=== PATIENT | male | born 1995 | race American Indian/Alaskan Native ===

== ENCOUNTER 2016-05-18 21:59 | Emergency (ER) | payer SELFPAY ==
[2016-05-18 23:51] LABS: Basophils % (Auto) 0.5 % (0.0-1.8); Eosinophils % (Auto) 1.7 % (0.0-4.3); Hematocrit 44.3 % (35.5-45.6); Hemoglobin 14.9 gm/dl (11.8-15.2); Mean Corpuscular HGB Conc 34 % (32-34); Mean Corpuscular Hemoglobin 29 pg (28-32); Mean Corpuscular Volume 85 fl (84-94); Platelet Count 175 K/mm3 (140-440); Red Blood Count 5.19 M/mm3 (3.65-5.03); Red Cell Distribution Width 12.8 % (13.2-15.2); White Blood Count 8.8 K/mm3 (4.5-11.0)
[2016-05-19 00:04] LABS: Anion Gap 19 mmol/L; Blood Urea Nitrogen 17 mg/dL (9-20); Carbon Dioxide 24 mmol/L (22-30); Chloride 100.9 mmol/L (98-107); Glucose 69 mg/dL (75-100); Potassium 3.8 mmol/L (3.6-5.0); Sodium 140 mmol/L (137-145)
[2016-05-19] MEDS ORDERED: TORADOL IM ONE (07:20)
--- NOTE | 2016-05-19 07:20 | Emergency Department Report ---
ED General Adult HPI - General Chief complaint: Chest Pain Stated complaint: CHEST PAIN, HEADACHE, PAIN IN LT SIDE Time Seen by Provider: 05/19/16 07:02 Source: patient Mode of arrival: Ambulatory Limitations: No Limitations - History of Present Illness Initial comments: This is a 21-year-old male. He is previously unknown to me. He does not have a primary care doctor. He has no chronic medical conditions. The patient presents with 2 complaints. The patient's first complaint is chest pain. The chest pain is in the left side of the chest. It increases with deep inspiration, and movement of the left upper extremity. The pain does not radiate to the back, arms and neck. There is no vomiting, diaphoresis or shortness of breath. Patient reports that 3-4 days ago, he got back from [facility]. The pain started before he went to [facility]. There is no leg pain. There is no leg swelling. No cocaine use. Patient reports that his mother and father do not have a history of heart disease. The patient's next complaint is headache. The headache is occipital, and right- sided. The headache is not sudden or thunderclap in nature. The headache did not respond maximal intensity within an hour. There is no neck pain or neck stiffness. The patient reports a worse headache 3-4 months ago. -: Gradual Location: head, chest, left, upper extremity Severity scale (0 -10): 0 Quality: aching Consistency: intermittent Improves with: other (as per history of present illness. Patient reports that headache does not have any exacerbating or relieving factors) Worsens with: other (as per history of present illness) Associated Symptoms: chest pain, headaches - Related Data Home Medications Medication Instructions Recorded Confirmed Last Taken No Known Home Medications [No 05/19/16 05/19/16 Unknown Reported Home Medications] Allergies Allergy/AdvReac Type Severity Reaction Status Date / Time No Known Allergies Allergy Unverified 09/16/14 09:21 ED Review of Systems ROS: Stated complaint: CHEST PAIN, HEADACHE, PAIN IN LT SIDE Other details as noted in HPI Constitutional: denies: malaise Eyes: denies: vision change ENT: denies: epistaxis Respiratory: see HPI Cardiovascular: chest pain Gastrointestinal: denies: abdominal pain Genitourinary: as per HPI Musculoskeletal: denies: back pain Skin: denies: lesions Neurological: headache Psychiatric: as per HPI ED Past Medical Hx - Past Medical History Previous Medical History?: No - Surgical History Past Surgical History?: Yes Additional Surgical History: RIGHT EYE SURGERY - Social History Smoking Status: Never Smoker Substance Use Type: Alcohol - Medications Home Medications: Home Medications Medication Instructions Recorded Confirmed Last Taken Type No Known Home Medications [No 05/19/16 05/19/16 Unknown History Reported Home Medications] ED Physical Exam - General Limitations: No Limitations General appearance: alert, in no apparent distress - Head Head exam: Present: atraumatic, normocephalic - Eye Eye exam: Present: normal appearance, PERRL, EOMI, other (visual acuity is intact to finger counting, color perception, rating at a close distance). Absent: nystagmus - ENT ENT exam: Present: normal exam, normal orophraynx, mucous membranes moist, normal external ear exam - Neck Neck exam: Present: normal inspection, full ROM. Absent: tenderness, meningismus - Respiratory Respiratory exam: Present: normal lung sounds bilaterally. Absent: respiratory distress, wheezes, rales, rhonchi, stridor, decreased breath sounds - Cardiovascular Cardiovascular Exam: Present: regular rate, normal rhythm, normal heart sounds. Absent: bradycardia, tachycardia, irregular rhythm, systolic murmur, diastolic murmur, rubs, gallop - GI/Abdominal GI/Abdominal exam: Present: soft, normal bowel sounds. Absent: distended, tenderness, guarding, rebound, rigid, pulsatile mass - Rectal Rectal exam: Present: deferred - Extremities Exam Extremities exam: Present: normal inspection, full ROM, normal capillary refill. Absent: tenderness, pedal edema, joint swelling, calf tenderness - Back Exam Back exam: Present: normal inspection, full ROM. Absent: tenderness, CVA tenderness (R), CVA tenderness (L), muscle spasm, paraspinal tenderness, vertebral tenderness - Neurological Exam Neurological exam: Present: alert, oriented X3, normal gait, other (Extraocular movements intact. Tongue midline. No facial droop. Facial sensation intact to light touch in the V1, V2, V3 distribution bilaterally. 5 and 5 strength in 4 extremities.. Sensation is intact to light touch in 4 extremities.). Absent : motor sensory deficit - Psychiatric Psychiatric exam: Present: normal affect, normal mood - Skin Skin exam: Present: warm, dry, intact, normal color. Absent: rash ED Course Vital Signs 04/07/17 04/08/17 04/08/17 22:25 02:57 05:13 Temperature 98.0 F 97.4 F L 98 F Pulse Rate 82 60 52 L Respiratory 18 18 16 Rate Blood Pressure 127/85 126/80 Blood Pressure 132/77 [Left] O2 Sat by Pulse 99 100 99 Oximetry 05/19/16 07:50 Temperature 98.0 F Pulse Rate 63 Respiratory 16 Rate Blood Pressure Blood Pressure 120/79 [Left] O2 Sat by Pulse 100 Oximetry - Reevaluation(s) Reevaluation #1: 05/19/16 08:07 Differential diagnosis: Migraine headache, tension headache, cluster headache, muscular headache, pneumonia, costochondritis, pleuritis, myocarditis, pulmonary embolus, acute coronary syndrome Assessment and plan: 21-year-old male with 2 complaints. For the patient's chest pain, it has been present for 1-2 weeks. Troponins negative 3. Low risk by ALEXANDER score, low risk by heart score, low risk by well' s criteria, perc negative. Highly doubt thromboembolic disease, but given recent trip to [facility], d- dimer sent to risk stratify the patient, his chest pain is not reproducible. Myocarditis unlikely given lack of negative troponins and lack of tachycardia. X-ray of the chest is negative. EKG not morphologically consistent with STEMI, initial EKG demonstrates possible atrial enlargement, and incomplete right bundle-branch block. This seems to have resolved on repeat EKG. Assuming negative d-dimer or negative pulmonary embolus, patient is suitable to follow up with outpatient cardiology given that symptoms have been present for weeks. He reports no change in exercise tolerance. Patient's headache nonspecific, clinically sounds benign, has a GCS of 15, NIH score of 0, history and physical do not suggest ischemic or hemorrhagic stroke. Patient's pain will be treated symptomatically with ketorolac. Reevaluation #2: 05/19/16 08:24 D-dimer negative. Feels improved. Patient will be discharged. He is instructed to follow up with outpatient cardiology. Return precautions are excessively reviewed. ED Medical Decision Making - Lab Data Result diagrams: 05/18/16 23:27 05/18/16 23:27 Vital Signs 05/18/16 05/19/16 05/19/16 22:25 02:57 05:13 Temperature 98.0 F 97.4 F L 98 F Pulse Rate 82 60 52 L Respiratory 18 18 16 Rate Blood Pressure 127/85 126/80 Blood Pressure 132/77 [Left] O2 Sat by Pulse 99 100 99 Oximetry Lab Results 05/18/16 05/18/16 05/19/16 Range/Units 23:27 23:27 02:00 WBC 8.8 (4.5-11.0) K/mm3 RBC 5.19 H (3.65-5.03) M/mm3 Hgb 14.9 (11.8-15.2) gm/dl Hct 44.3 (35.5-45.6) % MCV 85 (84-94) fl MCH 29 (28-32) pg MCHC 34 (32-34) % RDW 12.8 L (13.2-15.2) % Plt Count 175 (140-440) K/mm3 Lymph % (Auto) 36.9 H (13.4-35.0) % [place] % (Auto) 9.2 H (0.0-7.3) % Eos % (Auto) 1.7 (0.0-4.3) % Baso % (Auto) 0.5 (0.0-1.8) % Lymph # 3.2 (1.2-5.4) K/mm3 [place] # 0.8 (0.0-0.8) K/mm3 Eos # 0.1 (0.0-0.4) K/mm3 Baso # 0.0 (0.0-0.1) K/mm3 Seg Neutrophils % 51.7 (40.0-70.0) % Seg Neutrophils # 4.5 (1.8-7.7) K/mm3 Sodium 140 (137-145) mmol/L Potassium 3.8 (3.6-5.0) mmol/L Chloride 100.9 (98-107) mmol/L Carbon Dioxide 24 (22-30) mmol/L Anion Gap 19 mmol/L BUN 17 (9-20) mg/dL Creatinine 1.0 (0.8-1.5) mg/dL Estimated GFR > 60 ml/min BUN/Creatinine Ratio 17.00 % Glucose 69 L (75-100) mg/dL Calcium 9.0 (8.4-10.2) mg/dL Troponin T < 0.010 < 0.010 (0.00-0.029) ng/mL 05/19/16 Range/Units 05:12 WBC (4.5-11.0) K/mm3 RBC (3.65-5.03) M/mm3 Hgb (11.8-15.2) gm/dl Hct (35.5-45.6) % MCV (84-94) fl MCH (28-32) pg MCHC (32-34) % RDW (13.2-15.2) % Plt Count (140-440) K/mm3 Lymph % (Auto) (13.4-35.0) % [place] % (Auto) (0.0-7.3) % Eos % (Auto) (0.0-4.3) % Baso % (Auto) (0.0-1.8) % Lymph # (1.2-5.4) K/mm3 [place] # (0.0-0.8) K/mm3 Eos # (0.0-0.4) K/mm3 Baso # (0.0-0.1) K/mm3 Seg Neutrophils % (40.0-70.0) % Seg Neutrophils # (1.8-7.7) K/mm3 Sodium (137-145) mmol/L Potassium (3.6-5.0) mmol/L Chloride (98-107) mmol/L Carbon Dioxide (22-30) mmol/L Anion Gap mmol/L BUN (9-20) mg/dL Creatinine (0.8-1.5) mg/dL Estimated GFR ml/min BUN/Creatinine Ratio % Glucose (75-100) mg/dL Calcium (8.4-10.2) mg/dL Troponin T < 0.010 (0.00-0.029) ng/mL - EKG Data -: EKG Interpreted by Me EKG shows normal: sinus rhythm Rate: normal - EKG Data 05/19/16 08:11 70 bpm, incomplete rbbb, qrs 388 ? atrial enlargement, normal axis, not c/w stemi EKG #2 demonstrates sinus bradycardia, 54 beats minute, normal axis, normal intervals, not consistent with STEMI, right bundle branch block has resolved. - Radiology Data Radiology results: image reviewed interpreted by me: xr chest negative for acute disease Critical care attestation.: If time is entered above; I have spent that time in minutes in the direct care of this critically ill patient, excluding procedure time. ED Disposition Clinical Impression: Chest pain Disposition: DISCHARGED TO HOME OR SELFCARE Is pt being admited?: No Does the pt Need Aspirin: No Condition: Stable Instructions: Chest Pain (ED), Acute Headache (ED) Additional Instructions: Laboratory studies were unremarkable. EKG demonstrated nonspecific abnormalities. These should be followed up by her head waiter within the next 7-10 days. Ute Whyte and Benjamin are local network specialist in different groups. Contact either of their offices to arrange follow-up. Take pain medication as directed. Rest and avoid heavy lifting. Avoid strenuous physical activity. Return to the ER right away with new pain, worsened pain, migration of pain, fevers or chills, intractable nausea or vomiting, inability to tolerate liquid feeds. Referrals: PRIMARY CARE, [Primary Care Provider] - 3-5 Days MORE BENITEZ MD [Staff Physician] - 3-5 Days FINN WHYTE MD [Staff Physician] - 3-5 Days
[2016-05-19 09:38] VITALS: BP 120/79
--- NOTE | 2016-05-19 09:43 | XRay Report ---
ROUTINE CHEST, TWO VIEWS: HISTORY: chest pain. The trachea, heart, mediastinal contour, lung escobedo and bony thorax are unremarkable. IMPRESSION: Unremarkable chest x-ray.
== END 2016-05-19 08:30 | disposition home or self-care (01) ==
LOC: ED 21:59
DX: R07.9 Chest pain, unspecified (principal)
CPT/HCPCS: 36415; 71020; 80048; 84484; 85025; 85379; 85610; 93005; 93010; 96372; 99285; J1885

== ENCOUNTER 2017-08-08 19:22 | Emergency (ER) | payer SELFPAY ==
[2017-08-08 19:29] VITALS: BP 127/77
--- NOTE | 2017-08-08 22:23 | Emergency Department Report ---
ED ENT HPI - General Chief complaint: Dental/Oral Stated complaint: FLANK PAIN Time Seen by Provider: 08/08/17 22:15 Source: patient Mode of arrival: Ambulatory Limitations: No Limitations - History of Present Illness Initial comments: This is a 22-year-old male nontoxic, well nourished in appearance, no acute signs of distress presents to the ED with c/o of right lower toothache 2 months. Patient denies following up with a dentist. Patient stated that pain radiates from his job to his right side of head. Patient otherwise denies any head trauma. Patient describes toothache as aching level of 8 out of 10. Patient denies any facial swelling. Patient denies any numbness, tingling, fever, chills, headache, stiff neck, abdominal pain, chest pain, shortness of breath. Patient denies any drug allergies or significant past medical history. MD complaint: tooth pain -: month(s) (2) Location: tooth # 1 - pain here Severity: mild Severity scale (0 -10): 8 Quality: aching Consistency: constant Improves with: none Worsens with: none Context- Dental: history of dental caries, poor dental care Associated Symptoms: gum swelling, toothache. denies: fever, cough, pain with swallowing, sore throat, tinnitus, hearing loss, discharge from ear, rhinorrhea - Related Data Previous Rx's Medication Instructions Recorded Last Taken Type Acetaminophen/Codeine [Tylenol 1 tab PO Q6H PRN #12 tab 08/08/17 Unknown Rx /Codeine # 3 tab] Amoxicillin/K Clav Tab [Augmentin 1 tab PO Q12HR #20 tab 08/08/17 Unknown Rx 875 mg] Chlorhexidine Mouthwash [Peridex] 15 ml MM BID #1 bottle 08/08/17 Unknown Rx Ibuprofen [Motrin] 600 mg PO Q8H PRN #30 tablet 08/08/17 Unknown Rx Allergies Allergy/AdvReac Type Severity Reaction Status Date / Time No Known Allergies Allergy Unverified 09/16/14 09:21 ED Dental HPI - General Chief complaint: Dental/Oral Stated complaint: FLANK PAIN Time Seen by Provider: 08/08/17 22:15 Source: patient Mode of arrival: Ambulatory Limitations: No Limitations - Related Data Previous Rx's Medication Instructions Recorded Last Taken Type Acetaminophen/Codeine [Tylenol 1 tab PO Q6H PRN #12 tab 08/08/17 Unknown Rx /Codeine # 3 tab] Amoxicillin/K Clav Tab [Augmentin 1 tab PO Q12HR #20 tab 08/08/17 Unknown Rx 875 mg] Chlorhexidine Mouthwash [Peridex] 15 ml MM BID #1 bottle 08/08/17 Unknown Rx Ibuprofen [Motrin] 600 mg PO Q8H PRN #30 tablet 08/08/17 Unknown Rx Allergies Allergy/AdvReac Type Severity Reaction Status Date / Time No Known Allergies Allergy Unverified 09/16/14 09:21 ED Review of Systems ROS: Stated complaint: FLANK PAIN Other details as noted in HPI Constitutional: denies: chills, fever Eyes: denies: eye pain, eye discharge, vision change ENT: dental pain. denies: ear pain, throat pain Respiratory: denies: cough, shortness of breath, wheezing Cardiovascular: denies: chest pain, palpitations Endocrine: no symptoms reported Gastrointestinal: denies: abdominal pain, nausea, diarrhea Genitourinary: denies: urgency, dysuria Musculoskeletal: denies: back pain, joint swelling, arthralgia Skin: denies: rash, lesions Neurological: denies: headache, weakness, paresthesias Psychiatric: denies: anxiety, depression Hematological/Lymphatic: denies: easy bleeding, easy bruising ED Past Medical Hx - Past Medical History Previous Medical History?: No - Surgical History Past Surgical History?: Yes Additional Surgical History: RIGHT EYE SURGERY - Social History Smoking Status: Never Smoker Substance Use Type: None - Medications Home Medications: Home Medications Medication Instructions Recorded Confirmed Last Taken Type Acetaminophen/Codeine [Tylenol 1 tab PO Q6H PRN #12 tab 08/08/17 Unknown Rx /Codeine # 3 tab] Amoxicillin/K Clav Tab [Augmentin 1 tab PO Q12HR #20 tab 08/08/17 Unknown Rx 875 mg] Chlorhexidine Mouthwash [Peridex] 15 ml MM BID #1 bottle 08/08/17 Unknown Rx Ibuprofen [Motrin] 600 mg PO Q8H PRN #30 tablet 08/08/17 Unknown Rx ED Physical Exam - General Limitations: No Limitations General appearance: alert, in no apparent distress - Head Head exam: Present: atraumatic, normocephalic - Eye Eye exam: Present: normal appearance Pupils: Present: normal accommodation - ENT ENT exam: Present: mucous membranes moist, TM's normal bilaterally, normal external ear exam - Expanded ENT Exam Expanded Ear exam: Present: normal external inspection Mouth exam: Present: normal external inspection, tongue normal. Absent: drooling, trismus, muffled voice, tongue elevation, laceration Teeth exam: Present: dental caries, fractured tooth #, dental tenderness #, gingival enlargement, other (No facial swelling.) Throat exam: Positive: normal inspection, other (Uvula midline. ). Negative: tonsillar erythema, tonsillomegaly, tonsillar exudate, R peritonsillar mass, L peritonsillar mass - Neck Neck exam: Present: normal inspection, full ROM. Absent: tenderness, meningismus, lymphadenopathy - Respiratory Respiratory exam: Present: normal lung sounds bilaterally. Absent: respiratory distress - Cardiovascular Cardiovascular Exam: Present: regular rate, normal rhythm. Absent: systolic murmur, diastolic murmur, rubs, gallop - GI/Abdominal GI/Abdominal exam: Present: soft, normal bowel sounds - Rectal Rectal exam: Present: deferred - Extremities Exam Extremities exam: Present: normal inspection - Back Exam Back exam: Present: normal inspection - Neurological Exam Neurological exam: Present: alert, oriented X3 - Psychiatric Psychiatric exam: Present: normal affect, normal mood - Skin Skin exam: Present: warm, dry, intact, normal color. Absent: rash ED Course Vital Signs 08/08/17 08/08/17 19:21 19:39 Temperature 97.9 F 97.9 F Pulse Rate 49 L 49 L Respiratory 18 16 Rate Blood Pressure 127/77 127/77 O2 Sat by Pulse 99 96 Oximetry - Reevaluation(s) Reevaluation #1: 08/08/17 22:21 Patient is speaking in full sentences with no signs of distress noted. Critical care attestation.: If time is entered above; I have spent that time in minutes in the direct care of this critically ill patient, excluding procedure time. ED Disposition Clinical Impression: Dental caries, Gingivitis Disposition: - TO HOME OR SELFCARE Is pt being admited?: No Does the pt Need Aspirin: No Condition: Stable Instructions: Dental Caries (ED), Gingivitis (ED), Acetaminophen/Codeine (By mouth) Additional Instructions: Follow-up with a dentist in 3-5 days or if symptoms worsen and continue return to emergency room as soon as possible. Do not operate any machinery while taking Tylenol with codeine at this may cause drowsiness. Prescriptions: Acetaminophen/Codeine [Tylenol /Codeine # 3 tab] 1 tab PO Q6H PRN #12 tab PRN Reason: Pain , Severe (7-10) Amoxicillin/K Clav Tab [Augmentin 875 mg] 1 tab PO Q12HR #20 tab Chlorhexidine Mouthwash [Peridex] 15 ml MM BID #1 bottle Ibuprofen [Motrin] 600 mg PO Q8H PRN #30 tablet PRN Reason: Pain Referrals: PRIMARY CARE, [Primary Care Provider] - 3-5 Days ERICA JASSO MD [Staff Physician] - 3-5 Days [facility] [Outside] - 3-5 Days Forms: Work/School Release Form(ED)
== END 2017-08-08 22:42 | disposition home or self-care (01) ==
LOC: ED 19:22
DX: K05.10 Chronic gingivitis, plaque induced (principal)
CPT/HCPCS: 99282

== ENCOUNTER 2017-08-22 22:17 | Emergency (ER) | payer OTHER ==
[2017-08-22 22:33] VITALS: BP 128/77
[2017-08-22] MEDS ORDERED: MOTRIN PO ONE (22:53)
--- NOTE | 2017-08-22 23:01 | Emergency Department Report ---
ED ENT HPI - General Chief complaint: Dental/Oral Stated complaint: TOOTHACHE Time Seen by Provider: 08/22/17 22:48 Source: patient Mode of arrival: Ambulatory Limitations: No Limitations - History of Present Illness Initial comments: This is a 22-year-old male known to me nontoxic, well nourished in appearance, no acute signs of distress presents to the ED with c/o of right lower toothache 2 months. Patient was seen by me on 08/08/2017 for same symptoms and was referred to dentist. Patient denies following up with a dentist. Patient is requesting for "Tylenol with Codeine or Percocets" for pain. Patient stated finished all his medications of antibiotics. Patient stated that pain radiates from his job to his right side of head. Patient otherwise denies any head trauma. Patient describes toothache as aching level of 8 out of 10. Patient denies any facial swelling. Patient denies any numbness, tingling, fever, chills, headache, stiff neck, abdominal pain, chest pain, shortness of breath. Patient denies any drug allergies or significant past medical history. MD complaint: tooth pain -: month(s) (2) Location: tooth # 1 - pain here Severity: mild Severity scale (0 -10): 8 Quality: aching Consistency: constant Improves with: none Worsens with: none Associated Symptoms: gum swelling, toothache. denies: fever, cough, pain with swallowing, sore throat, tinnitus, hearing loss, discharge from ear, rhinorrhea - Related Data Previous Rx's Medication Instructions Recorded Last Taken Type Acetaminophen/Codeine [Tylenol 1 tab PO Q6H PRN #12 tab 08/08/17 Unknown Rx /Codeine # 3 tab] Amoxicillin/K Clav Tab [Augmentin 1 tab PO Q12HR #20 tab 08/08/17 Unknown Rx 875 mg] Chlorhexidine Mouthwash [Peridex] 15 ml MM BID #1 bottle 08/08/17 Unknown Rx Ibuprofen [Motrin] 600 mg PO Q8H PRN #30 tablet 08/08/17 Unknown Rx Naproxen 500 mg PO Q8H PRN #20 tablet 08/22/17 Unknown Rx Allergies Allergy/AdvReac Type Severity Reaction Status Date / Time No Known Allergies Allergy Verified 08/22/17 22:29 ED Dental HPI - General Chief complaint: Dental/Oral Stated complaint: TOOTHACHE Time Seen by Provider: 08/22/17 22:48 Source: patient Mode of arrival: Ambulatory Limitations: No Limitations - Related Data Previous Rx's Medication Instructions Recorded Last Taken Type Acetaminophen/Codeine [Tylenol 1 tab PO Q6H PRN #12 tab 08/08/17 Unknown Rx /Codeine # 3 tab] Amoxicillin/K Clav Tab [Augmentin 1 tab PO Q12HR #20 tab 08/08/17 Unknown Rx 875 mg] Chlorhexidine Mouthwash [Peridex] 15 ml MM BID #1 bottle 08/08/17 Unknown Rx Ibuprofen [Motrin] 600 mg PO Q8H PRN #30 tablet 08/08/17 Unknown Rx Naproxen 500 mg PO Q8H PRN #20 tablet 08/22/17 Unknown Rx Allergies Allergy/AdvReac Type Severity Reaction Status Date / Time No Known Allergies Allergy Verified 08/22/17 22:29 ED Review of Systems ROS: Stated complaint: TOOTHACHE Other details as noted in HPI Constitutional: denies: chills, fever Eyes: denies: eye pain, eye discharge, vision change ENT: denies: ear pain, throat pain Respiratory: denies: cough, shortness of breath, wheezing Cardiovascular: denies: chest pain, palpitations Endocrine: no symptoms reported Gastrointestinal: denies: abdominal pain, nausea, diarrhea Genitourinary: denies: urgency, dysuria Musculoskeletal: denies: back pain, joint swelling, arthralgia Skin: denies: rash, lesions Neurological: denies: headache, weakness, paresthesias Psychiatric: denies: anxiety, depression Hematological/Lymphatic: denies: easy bleeding, easy bruising ED Past Medical Hx - Past Medical History Previous Medical History?: No - Surgical History Additional Surgical History: RIGHT EYE SURGERY - Social History Smoking Status: Never Smoker Substance Use Type: None - Medications Home Medications: Home Medications Medication Instructions Recorded Confirmed Last Taken Type Acetaminophen/Codeine [Tylenol 1 tab PO Q6H PRN #12 tab 08/08/17 Unknown Rx /Codeine # 3 tab] Amoxicillin/K Clav Tab [Augmentin 1 tab PO Q12HR #20 tab 08/08/17 Unknown Rx 875 mg] Chlorhexidine Mouthwash [Peridex] 15 ml MM BID #1 bottle 08/08/17 Unknown Rx Ibuprofen [Motrin] 600 mg PO Q8H PRN #30 tablet 08/08/17 Unknown Rx Naproxen 500 mg PO Q8H PRN #20 tablet 08/22/17 Unknown Rx ED Physical Exam - General Limitations: No Limitations General appearance: alert, in no apparent distress - Head Head exam: Present: atraumatic, normocephalic - Eye Eye exam: Present: normal appearance Pupils: Present: normal accommodation - ENT ENT exam: Present: mucous membranes moist, TM's normal bilaterally, normal external ear exam - Expanded ENT Exam Expanded Ear exam: Present: normal external inspection Mouth exam: Present: normal external inspection, tongue normal. Absent: drooling, trismus, muffled voice, tongue elevation, laceration Teeth exam: Present: dental caries, fractured tooth #, dental tenderness #, gingival enlargement, other (No facial swelling.) Throat exam: Positive: normal inspection, other (Uvula midline. ). Negative: tonsillar erythema, tonsillomegaly, tonsillar exudate, R peritonsillar mass, L peritonsillar mass - Neck Neck exam: Present: normal inspection, full ROM. Absent: tenderness, meningismus, lymphadenopathy - Respiratory Respiratory exam: Present: normal lung sounds bilaterally. Absent: respiratory distress - Cardiovascular Cardiovascular Exam: Present: regular rate, normal rhythm. Absent: systolic murmur, diastolic murmur, rubs, gallop - GI/Abdominal GI/Abdominal exam: Present: soft, normal bowel sounds - Rectal Rectal exam: Present: deferred - Extremities Exam Extremities exam: Present: normal inspection - Back Exam Back exam: Present: normal inspection - Neurological Exam Neurological exam: Present: alert, oriented X3 - Psychiatric Psychiatric exam: Present: normal affect, normal mood - Skin Skin exam: Present: warm, dry, intact, normal color. Absent: rash ED Course Vital Signs 08/22/17 22:29 Temperature 98.5 F Pulse Rate 56 L Respiratory 16 Rate Blood Pressure 128/77 O2 Sat by Pulse 97 Oximetry - Reevaluation(s) Reevaluation #1: 08/22/17 23:00 Patient is speaking in full sentences with no signs of distress noted. ED Medical Decision Making - Medical Decision Making 21-year-old male that presents with toothache. Patient is stable to exam by me. Patient did receive about a week ago antibiotics which he stated he finished. Patient stated that he is currently here just for pain control. I will discharge patient with naproxen. Patient was referred again to follow up with a dentist as I stated to him that he needs a dental workup. No signs of any infection. At time of discharge, the patient does not seem toxic or ill in appearance. No acute signs of distress noted. Patient agrees to discharge treatment plan of care. No further questions noted by the patient. Critical care attestation.: If time is entered above; I have spent that time in minutes in the direct care of this critically ill patient, excluding procedure time. ED Disposition Clinical Impression: Toothache Disposition: TO HOME OR SELFCARE Is pt being admited?: No Does the pt Need Aspirin: No Condition: Stable Instructions: Toothache (ED) Additional Instructions: Follow-up with a dentist in 3-5 days or if symptoms worsen and continue return to emergency room as soon as possible. Prescriptions: Naproxen 500 mg PO Q8H PRN #20 tablet PRN Reason: Pain , Severe (7-10) Referrals: PRIMARY CARE, [Primary Care Provider] - 3-5 Days ERICA JASSO MD [Staff Physician] - 3-5 Days [facility] [Outside] - 3-5 Days Forms: Work/School Release Form(ED)
== END 2017-08-22 23:15 | disposition home or self-care (01) ==
LOC: ED 22:17
DX: K08.89 Other specified disorders of teeth and supporting structures (principal)
CPT/HCPCS: 99282

== ENCOUNTER 2019-03-27 20:51 | Emergency (ER) | payer OTHER ==
[2019-03-27 22:40] VITALS: BP 125/65
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
== END 2019-03-27 23:00 | disposition home or self-care (01) ==
LOC: ED 20:51
DX: M54.2 Cervicalgia (principal); M54.9 Dorsalgia, unspecified; V49.59XA Passenger injured in collision with other motor vehicles in traffic accident, initial encounter; Y93.89 Activity, other specified; Y92.410 Unspecified street and highway as the place of occurrence of the external cause; Y99.8 Other external cause status
CPT/HCPCS: 99282

== ENCOUNTER 2020-06-28 06:47 | Observation (INO) | payer SELFPAY ==
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
[2020-06-28 08:34] LABS: Hematocrit 43.8 % (35.5-45.6); Hemoglobin 15.1 gm/dl (11.8-15.2)
[2020-06-28 08:58] LABS: BUN/Creatinine Ratio 13; Blood Urea Nitrogen 13 mg/dL (9-20); Calcium 9.5 mg/dL (8.4-10.2); Hemolysis Index 52
--- NOTE | 2020-06-28 08:59 | Cat Scan Report ---
CT head/brain wo con INDICATION / CLINICAL INFORMATION: 25 years Male; headache, convulsion. TECHNIQUE: Routine CT head without contrast. All CT scans at this location are performed using CT dos e reduction for ALARA by means of automated exposure control. COMPARISON: None. FINDINGS: BRAIN / INTRACRANIAL CONTENTS: Relatively focal area of decreased attenuation seen in the anteromedia l gangliocapsular region on the left, adjacent to the frontal horn of the left lateral ventricle. Old branch infarct would be the most likely etiology. Pre and postcontrast MRI of the brain may be helpf ul in ensuring there is no evidence of underlying lesion or that these findings do not represent suba cute ischemic change, as no priors are available for comparison. Otherwise, no acute hemorrhage, mass effect, midline shift, hydrocephalus, or acute, large territoria l infarct. No other signs of significant atrophy or chronic infarct. No significant white matter abno rmality seen. CRANIOCERVICAL JUNCTION: No significant abnormality. ORBITS: No significant abnormality of visualized orbits. SINUSES / MASTOIDS: Visualized paranasal sinuses and mastoid air cells are essentially clear. ADDITIONAL FINDINGS: None. IMPRESSION: 1. Findings in the anteromedial gangliocapsular region on the left, as described above. Pre and postc ontrast MRI of the brain may be helpful for further evaluation. 2. Otherwise, no focal mass, hemorrhage, hydrocephalus, or acute, large infarct is seen. Signer Name: Elmer Russ MD, III Signed: 06/28/2020 8:54 AM Workstation Name: [id number]
[2020-06-28] MEDS ORDERED: levETIRAcetam 1000 MG/NS 0.75% 1,000 MG/100 ML BAG IV ONE (09:55)
[2020-06-28] MEDS ORDERED: diphenhydrAMINE 50 MG/ML VIAL IV ONE (09:55)
[2020-06-28] MEDS ORDERED: ACETAMINOPHEN 500 MG TAB PO ONE (09:55)
[2020-06-28] MEDS ORDERED: METOCLOPRAMIDE 10 MG/2 ML INJ IV ONE (09:55)
--- NOTE | 2020-06-28 10:32 | Electrocardiograph Report ---
[facility] Test Date: 2020-06-28 Test Time: 08:03:26 Pat Name: ANDRA VELÁSQUEZ Department: Room: Gender: M [employer]: DYLAN : 1995 Requested By: GAL MIGUEL Order Number: [id number] Reading MD: Rob Gamboa Measurements Intervals [place] Rate: 82 P: 74 CA: 151 QRS: -27 QRSD: 95 T: 18 QT: 350 QTc: 409 Interpretive Statements Sinus rhythm ST elev, probable normal early repol pattern No previous ECG available for comparison Electronically Signed On 06-28-2020 10:31:54 EDT by Rob Gamboa
--- NOTE | 2020-06-28 12:47 | History and Physical Report ---
History of Present Illness Date of examination: 06/28/20 Date of admission: 06/28/20 09:55 Chief complaint: Witnessed seizure History of present illness: 25yo male patient with no significant past medical history except for seizure episode 2 months ago for which patient did not seek medical attention, was brought to the emergency room by EMS with history of seizure at home in his sleep witnessed by his significant other [the first occured about 2 months ago, he did not seek medical care at that time] Patient was a little confused when the EMS arrived, however in the ER patient is back to his baseline mental status. Patient complaint of mild headache on arrival which resolved later. No history suggestive of bladder or bowel incontinence or tongue bite. CT head without contrast done in the ED show possible left hemispheric abnormality. At the time of my evaluation patient is alert awake oriented x3 denies any headache, dizziness weakness or numbness No new episodes of seizure,Telemetry neurologist evaluated the patient and recommended Keppra ,MRI and EEG Past History Past Medical History: seizures (One-time) Past Surgical History: Other (Right eye surgery) Social history: smoking, other (Marijuana) Family history: no significant family history Medications and Allergies Allergies Allergy/AdvReac Type Severity Reaction Status Date / Time No Known Allergies Allergy Verified 08/22/17 22:29 Home Medications Medication Instructions Recorded Confirmed Last Taken Type Ibuprofen [Motrin] 600 mg PO Q8H PRN #30 tablet 08/08/17 06/28/20 Unknown Rx Review of Systems Constitutional: no weight loss, no weight gain, no fever, no weakness Ears, nose, mouth and throat: no nasal congestion, no nasal discharge Cardiovascular: no chest pain, no orthopnea, no palpitations Respiratory: no cough with sputum, no shortness of breath, no dyspnea on exertion Gastrointestinal: no abdominal pain, no nausea, no vomiting Genitourinary Male: no dysuria, no hematuria Musculoskeletal: no myalgias, no arthritis Integumentary: no rash, no lesions Neurological: seizures, convulsions, no syncope, no vertigo Psychiatric: no anxiety, no memory loss Endocrine: no cold intolerance, no heat intolerance Hematologic/Lymphatic: no easy bruising, no easy bleeding Allergic/Immunologic: no urticaria, no allergic rhinitis Exam - Constitutional Vitals: Temp Pulse Resp BP Pulse Ox 98.4 F 75 18 120/69 100 06/28/20 12:40 06/28/20 12:40 06/28/20 12:40 06/28/20 12:40 06/28/20 12:40 General appearance: Present: no acute distress, well-nourished - EENT Eyes: Present: PERRL, EOM intact - Neck Neck: Present: supple, normal ROM - Respiratory Respiratory effort: normal, labored Respiratory: bilateral: diminished, negative: rales, rhonchi - Cardiovascular Rhythm: regular Heart Sounds: Present: S1 & S2 - Extremities Extremities: no ischemia, No edema - Abdominal General gastrointestinal: Present: soft, non-tender, non-distended, normal bowel sounds - Integumentary Integumentary: Present: clear, warm - Musculoskeletal Musculoskeletal: strength equal bilaterally - Psychiatric Psychiatric: appropriate mood/affect, cooperative - Neurologic Neurologic: moves all extremities Results - Labs CBC & Chem 7: 06/28/20 08:10 06/29/20 04:34 Labs: Abnormal lab results 06/28/20 06/28/20 06/28/20 Range/Units 08:10 08:10 08:10 Carbon Dioxide 20 L (22-30) mmol/L Glucose 108 H (75-100) mg/dL Magnesium 2.40 H (1.7-2.3) mg/dL Total Creatine Kinase 238 H (55-170) units/L Salicylates < 0.3 L (2.8-20.0) mg/dL Acetaminophen 5.0 L (10.0-30.0) ug/mL Assessment and Plan --Witnessed seizure; Seizure precautions, Neurochecks Ativan as needed for seizures Antiepileptic medicine Keppra 1000mg bid Seizure work-up in progress Neurology consulted Do not drive until cleared by neurologist --Abnormal CT head/abnormal MRI brain with and without CT head without contrast: Decreased attenuation seen in the anteromedial ganglia capsular region on the left adjacent to the frontal horn of the left lateral ventricle Check with MRI check with MRI MRI brain; [without and with] small nonaggressive appearing bubbly type lesion seen along the septum pellucidum anteriorly Differential include sub-ependymoma , central neurocytoma or DNET- No acute hemorrhage, mass-effect, midline shift, hydrocephalus or acute large territorial infarct No chronic infarct or atrophy, no significant white matter abnormality CTA head: Check EEG Follow neurology evaluation Recheck CTA neck, Carotid Doppler and echocardiogram if indicated Physical therapy/occupational therapy and rehab --Ongoing tobacco use; smoking cessation counseling done Nicotine patch as needed --History of marijuana use; Counseling done, advised to quit recreational drug use -DVT prophylaxis-Lovenox Closely monitor patient and adjust the management as needed Follow toy consultant recommendations Plan of care discussed with the patient and his nurse I spent total 55 minutes coordinating this admission
--- NOTE | 2020-06-28 13:34 | Consultation ---
Medications and Allergies Allergies Allergy/AdvReac Type Severity Reaction Status Date / Time No Known Allergies Allergy Verified 08/22/17 22:29 Home Medications Medication Instructions Recorded Confirmed Last Taken Type Ibuprofen [Motrin] 600 mg PO Q8H PRN #30 tablet 08/08/17 06/28/20 Unknown Rx Physical Examination - Vital Signs Vital Signs: Vital Signs Pulse Resp BP Pulse Ox 95 H 16 114/51 98 06/28/20 07:00 06/28/20 07:00 06/28/20 07:00 06/28/20 07:00 Results - Laboratory Findings CBC and BMP: 06/28/20 08:10 06/28/20 08:10 Abnormal Lab Findings: Abnormal Labs 06/28/20 06/28/20 06/28/20 08:10 08:10 08:10 Carbon Dioxide 20 L Glucose 108 H Magnesium 2.40 H Total Creatine Kinase 238 H Salicylates < 0.3 L Acetaminophen 5.0 L Assessment and Plan [facility] Consult Note # Demographics Consult Type: General Neurology Patient Location: Emergency Room First Name: Hay Last Name: Judah Date of : 1995 Age: 25 Gender: Male Time of Initial Page (Eastern Time): 06/28/2020, 09:40 Time of Return Call (Eastern Time): 06/28/2020, 09:40 # HPI History: 25yo M presents after a second convulsive event. the first occured about 2 months ago, he did not seek medical care at that time. This morning his girlfriend witnessed another convulsive event. he was a little confused with EMS arrived, currently back to baseline. had a mild headache on arrival. CT was done showing a possible left hemispheric abnormality. ' he denies h/o recent headaches, right sided numbness or weakness. # Exam Mental Status: awake, alert and oriented x 3, follows commands Language: normal speech Cranial Nerves: normal Motor: normal strength Sensory: normal sensation Cerebellar: normal cerebellar exam # Assessment Impression: Seizure # Plan Imaging: (urgency: routine admission): MRI Brain with AND without contrast Diagnostic Test: EEG, EEG if able inpatient, otherwise outpatient if unable to do inpatient Medication: levetiracetam (Keppra) 1000 mg twice daily Other: seizure precautions, I have discussed my recommendations with the referring provider # Logistics Telemedicine: Interactive 2 way audio and visual telecommunication technology was utilized during this visit
[2020-06-28] MEDS ORDERED: LORazepam 2 MG/ML VIAL IV PRN (14:59)
--- NOTE | 2020-06-28 17:12 | Magnetic Resonance Report ---
MR brain wo/w con INDICATION / CLINICAL INFORMATION: 25 years Male; seizures. TECHNIQUE: Multiplanar, multisequence MR images of the brain were obtained. COMPARISON: None available. FINDINGS: BRAIN / INTRACRANIAL CONTENTS: There is a fairly well-circumscribed bubbly, cystic type lesion, along the septum pellucidum region anteriorly, leftward of midline, and measuring approximately 25 mm cran iocaudally by up to 11 mm transversely by 13 mm AP. The lesion extends inferiorly towards the hypotha lamic region on the left. No significant enhancement is seen following contrast administration. There is mild focal mass effect on the posterior aspect of the frontal horn of the left lateral ventricle. The anterior column of the fornix on the left is displaced a few millimeters posteriorly. Differenti al diagnosis might include subependymoma, central neurocytoma, or perhaps DNET. Comparison with any r emote, prior exam would be helpful, if available. Otherwise, no acute hemorrhage, mass effect, midline shift, hydrocephalus, or acute, large territori al infarct. No chronic infarct or atrophy. No significant white matter abnormality. CRANIOCERVICAL JUNCTION: No significant abnormality. VASCULAR FLOW-VOIDS: No significant abnormality. ORBITS: No significant abnormality of visualized orbits. SINUSES / MASTOIDS: No significant abnormality in the visualized paranasal sinuses or mastoid air deshaun ls. ADDITIONAL FINDINGS: None. IMPRESSION: 1. Small, nonaggressive appearing, bubbly type lesion seen along the septum pellucidum anteriorly, as described above in detail. Comparison with remote exam would be helpful, if available. Alternatively , relatively close follow-up is recommended to ensure stability in this finding. Dedicated high-resol ution imaging through this region could be performed at that time. Signer Name: Elmer Russ MD, III Signed: 06/28/2020 5:07 PM Workstation Name: [id number]
[2020-06-28] MEDS: levETIRAcetam 500 MG TAB PO SCH (21:24)
[2020-06-28] MEDS: HEPARIN 5,000 UNIT/1 ML VIAL SUB-Q SCH (21:25)
[2020-06-28] MEDS ORDERED: levETIRAcetam 750 MG in DEXTROSE 5% IN WATER 100 ML IV SCH (22:00)
--- NOTE | 2020-06-28 23:15 | Cat Scan Report ---
CT angio head INDICATION / CLINICAL INFORMATION: 25 years Male; Seizures / abnormal CT and MRI. TECHNIQUE: Thin cut axial images obtained through the head during IV bolus contrast administration. S agittal, coronal, and 3 plane MIP reconstructions performed by the technologist. NASCET type criteria used evaluate stenoses. Automated exposure control utilized for radiation reduction purposes. COMPARISON: None available. FINDINGS: INTERNAL CAROTID ARTERIES: There is no significant stenosis involving distal internal carotid arterie s by NASCET criteria. VERTEBROBASILAR SYSTEM: The vertebrobasilar system also appears to demonstrate appropriate caliber wi thout significant focal stenosis. CEREBRAL ARTERIES: There is a focus of decreased attenuation projected inferior to the lateral ventri cles and anterior to the third ventricle measuring 1.4 cm in greatest dimension. This finding correla amaris with the earlier CT and MRI. There is no clear evidence of associated enhancement or vascular com ponent at. There does appear to be slight mass effect upon the anterior cerebral arteries at. However , there is no significant focal stenosis. The remaining cerebral branches are otherwise unremarkable and also demonstrate appropriate caliber. ANEURYSM: None identified. ADDITIONAL FINDINGS: Remainder of the surrounding soft tissues are grossly normal. IMPRESSION: The findings correlate with the earlier CT demonstrating a 1.4 similar focus of decreased attenuation inferior to the lateral ventricles as a detailed above with apparent slight mass effect upon the ant erior cerebral arteries at. There is no CT evidence of vascular component or significant narrowing of the intracranial vessels. The study was specified as stat and dictated on an emergent basis at 10:09 PM Central standard time. Signer Name: Georgi Viveros MD Signed: 06/28/2020 11:11 PM Workstation Name: [id number]
[2020-06-29] MEDS: HEPARIN 5,000 UNIT/1 ML VIAL SUB-Q SCH ×2 (05:00→14:25)
[2020-06-29 06:33] LABS: Alanine Aminotransferase 22 units/L (7-56); Albumin 4.4 g/dL (3.9-5); BUN/Creatinine Ratio 10; Blood Urea Nitrogen 15 mg/dL (9-20); Calcium 9.6 mg/dL (8.4-10.2); Chol/HDL Ratio 3.37 %; HDL Cholesterol 53 mg/dL (40-59); Hemolysis Index 76; LDL Cholesterol,Direct 121 mg/dL (50-130)
[2020-06-29] MEDS ORDERED: PANTOPRAZOLE 40 MG TAB PO SCH (07:30)
--- NOTE | 2020-06-29 07:52 | Progress Note ---
Assessment and Plan Assessment and plan: --Witnessed seizure; No new episodes of seizures since admission Abnormal findings on CT head and MRI brain Follow neurology evaluation recommendations Continue seizure precautions, Neurochecks Ativan as needed for seizures Continue Keppra 1000mg bid Do not drive until cleared by neurologist Check EEG --Abnormal CT head/abnormal MRI brain with and without CT head without contrast: Decreased attenuation seen in the anteromedial ganglia capsular region on the left adjacent to the frontal horn of the left lateral ventricle Check with MRI check with MRI MRI brain; [without and with] small nonaggressive appearing bubbly type lesion seen along the septum pellucidum anteriorly Differential include sub-ependymoma , central neurocytoma or DNET- No acute hemorrhage, mass-effect, midline shift, hydrocephalus or acute large territorial infarct No chronic infarct or atrophy, no significant white matter abnormality CTA head:1.4 similar focus of decreased attenuation inferior to the lateral ventricles as detailed above with apparent slight mass-effect upon the anterior cerebral arteries there is no CT evidence of vascular component or significant narrowing of the intracranial vessels Check EEG Follow neurology evaluation Recheck CTA neck, Carotid Doppler and echocardiogram if indicated Physical therapy/occupational therapy and rehab --Ongoing tobacco use; smoking cessation counseling done Nicotine patch as needed --History of marijuana use; Counseling done, advised to quit recreational drug use -DVT prophylaxis-Lovenox Closely monitor patient and adjust the management as needed Follow business consultant recommendations Plan of care discussed with the patient and his nurse 06/29/2020; no new episodes of seizures Abnormal findings CT head, MRI brain, follow neuro evaluation and recommend ations Hospitalist Physical - Constitutional Vitals: Temp Pulse Resp BP Pulse Ox 98.6 F 68 18 115/68 94 06/29/20 05:08 06/29/20 05:08 06/29/20 05:08 06/29/20 05:08 06/29/20 05:08 General appearance: Present: no acute distress, well-nourished Results - Labs CBC & Chem 7: 06/28/20 08:10 06/29/20 04:34 Labs: Laboratory Last Values Hgb 15.1 gm/dl (11.8-15.2) 06/28/20 08:10 Hct 43.8 % (35.5-45.6) 06/28/20 08:10 Plt Count 175 K/mm3 (140-440) 06/28/20 08:10 Sodium 140 mmol/L (137-145) 06/29/20 04:34 Potassium 4.3 mmol/L (3.6-5.0) 06/29/20 04:34 Chloride 104.5 mmol/L (98-107) 06/29/20 04:34 Carbon Dioxide 25 mmol/L (22-30) 06/29/20 04:34 Anion Gap 15 mmol/L 06/29/20 04:34 BUN 15 mg/dL (9-20) 06/29/20 04:34 Creatinine 1.5 mg/dL (0.8-1.3) H 06/29/20 04:34 Estimated GFR > 60 ml/min 06/29/20 04:34 BUN/Creatinine Ratio 10 % 06/29/20 04:34 Glucose 83 mg/dL (75-100) 06/29/20 04:34 Calcium 9.6 mg/dL (8.4-10.2) 06/29/20 04:34 Phosphorus 3.30 mg/dL (2.5-4.5) 06/29/20 04:34 Magnesium 2.10 mg/dL (1.7-2.3) 06/29/20 04:34 Total Bilirubin 1.20 mg/dL (0.1-1.2) 06/29/20 04:34 AST 31 units/L (5-40) 06/29/20 04:34 ALT 22 units/L (7-56) 06/29/20 04:34 Alkaline Phosphatase 70 units/L (35-129) 06/29/20 04:34 Total Creatine Kinase 238 units/L (55-170) H 06/28/20 08:10 Total Protein 7.6 g/dL (6.3-8.2) 06/29/20 04:34 Albumin 4.4 g/dL (3.9-5) 06/29/20 04:34 Albumin/Globulin Ratio 1.4 % 06/29/20 04:34 Triglycerides 79 mg/dL (2-149) 06/29/20 04:34 Cholesterol 179 mg/dL (50-199) 06/29/20 04:34 LDL Cholesterol Direct 121 mg/dL (50-130) 06/29/20 04:34 HDL Cholesterol 53 mg/dL (40-59) 06/29/20 04:34 Cholesterol/HDL Ratio 3.37 % 06/29/20 04:34 TSH 0.635 mlU/mL (0.270-4.200) 06/28/20 08:10 Salicylates < 0.3 mg/dL (2.8-20.0) L 06/28/20 08:10 Acetaminophen 5.0 ug/mL (10.0-30.0) L 06/28/20 08:10 Plasma/Serum Alcohol < 0.01 % (0-0.07) 06/28/20 08:10 Active Medications - Current Medications Current Medications: Generic Name Dose Route Start Last Admin Trade Name Freq PRN Reason Stop Dose Admin Heparin Sodium (Porcine) 5,000 unit 06/28/20 22:00 06/29/20 05:00 Heparin 5,000 Unit/1 Ml Vial SUB-Q 5,000 unit Q8HR MADAN Administration Levetiracetam 1,000 mg 06/28/20 22:00 06/28/20 21:24 Levetiracetam 500 Mg Tab PO 1,000 mg BID MADAN Administration Lorazepam 2 mg 06/28/20 14:59 Lorazepam 2 Mg/Ml Vial IV Q4H PRN Seizures Nicotine 14 mg 06/29/20 10:00 Nicotine 14 Mg/24 Hr Patch TD QDAY MADAN Pantoprazole Sodium 40 mg 06/29/20 07:30 Pantoprazole 40 Mg Tab PO QDAC MADAN
[2020-06-29] MEDS ORDERED: SODIUM CHLORIDE 0.9% 1000 ML 1,000 ML IV SCH (08:00)
[2020-06-29 08:03] VITALS: BP 110/58
[2020-06-29] MEDS: levETIRAcetam 500 MG TAB PO SCH (09:59)
[2020-06-29] MEDS: NICOTINE 14 MG/24 HR PATCH TD SCH ×2 (09:59→10:00)
[2020-06-29 12:00] LABS: Amphetamine Screen,Urine Negative; Benzodiazepines Screen,Urine Negative; Cocaine Screen,Urine Negative; Methadone Screen,Urine Negative; Opiate Screen,Urine Negative
[2020-06-29 12:14] LABS: Cannabinoid Screen,Urine Positive
--- NOTE | 2020-06-29 12:28 | Consultation ---
History of Present Illness Consult date: 06/29/20 Reason for Consult: Seizure History of present illness: History of present illness: 25yo male patient with no significant past medical history except for seizure episode 2 months ago for which patient did not seek medical attention, was brought to the emergency room by EMS with history of seizure at home in his sleep witnessed by his significant other [the first occured about 2 months ago, he did not seek medical care at that time] Patient was a little confused when the EMS arrived, however in the ER patient is back to his baseline mental status. Patient complaint of mild headache on arrival which resolved later. No history suggestive of bladder or bowel incontinence or tongue bite. CT head without contrast done in the ED show possible left hemispheric abnormality. At the time of my evaluation patient is alert awake oriented x3 denies any headache, dizziness weakness or numbness No new episodes of seizure,Telemetry neurologist evaluated the patient and recommended Keppra ,MRI and EEG There was no tongue bite , the patient had seizure in sleep. Past History Past Medical History: seizures (One-time) Past Surgical History: Other (Right eye surgery) Social history: smoking, other (Marijuana) Family history: no significant family history Medications and Allergies Allergies Allergy/AdvReac Type Severity Reaction Status Date / Time No Known Allergies Allergy Verified 08/22/17 22:29 Home Medications Medication Instructions Recorded Confirmed Last Taken Type Ibuprofen [Motrin] 600 mg PO Q8H PRN #30 tablet 08/08/17 06/28/20 Unknown Rx Active Meds: Active Medications Heparin Sodium (Porcine) (Heparin 5,000 Unit/1 Ml Vial) 5,000 unit SUB-Q Q8HR [facility] Last Admin: 06/29/20 05:00 Dose: 5,000 unit Documented by: Sodium Chloride (Nacl 0.9% 1000 Ml) 1,000 mls @ 100 mls/hr IV DIRECT [facility] Last Admin: 06/29/20 10:07 Dose: 100 mls/hr Documented by: Levetiracetam (Levetiracetam 500 Mg Tab) 1,000 mg PO BID [facility] Last Admin: 06/29/20 09:59 Dose: 1,000 mg Documented by: Lorazepam (Lorazepam 2 Mg/Ml Vial) 2 mg IV Q4H PRN PRN Reason: Seizures Nicotine (Nicotine 14 Mg/24 Hr Patch) 14 mg TD QDAY [facility] Last Admin: 06/29/20 10:00 Dose: Not Given Documented by: Pantoprazole Sodium (Pantoprazole 40 Mg Tab) 40 mg PO QDAC [facility] Last Admin: 06/29/20 09:59 Dose: 40 mg Documented by: Physical Examination - Vital Signs Vital Signs: Vital Signs Pulse Resp BP Pulse Ox 95 H 16 114/51 98 06/28/20 07:00 06/28/20 07:00 06/28/20 07:00 06/28/20 07:00 - Physical Exam Narrative exam: The patient is alert , There is no abnormailty in the finger to nose , moves all 4 extremities , Gait is not tested. Results - Laboratory Findings CBC and BMP: 06/28/20 08:10 06/29/20 04:34 Abnormal Lab Findings: Abnormal Labs 06/28/20 06/28/20 06/28/20 08:10 08:10 08:10 Carbon Dioxide 20 L Creatinine Glucose 108 H Magnesium 2.40 H Total Creatine Kinase 238 H Salicylates < 0.3 L Acetaminophen 5.0 L 06/29/20 04:34 Carbon Dioxide Creatinine 1.5 H Glucose Magnesium Total Creatine Kinase Salicylates Acetaminophen Assessment and Plan 1. Seizures ( Abnormal MRI Brain - will need a repeat in 6 weeks with a follow up MRI Brain ). 2. Continue Keppra on discharge 500 mg BID ( will adjust dose out patient . 3. No driving for 6 months . 4. Out Patient EEG . 5. I will follow up patient in office in4 week . Dr. Bradshaw
--- NOTE | 2020-06-29 14:11 | Discharge Summary ---
Providers - Providers Date of Admission: 06/28/20 09:55 Date of discharge: 06/29/20 Attending physician: ERWIN VILLARREAL 06/28/20 14:56 Consult to Physician [CONS] Routine Comment: Consulting Provider: DIANE GAXIOLA Physician Instructions: Reason For Exam: Seizures 06/28/20 15:01 Physical Therapy Evaluation and Treat [CONS] Routine Comment: Reason For Exam: Seizures Primary care physician: [facility] Reason for admission: Witnessed seizure Condition: Good Pertinent studies: CT head without contrast MRI brain with and without contrast CTA head Hospital course: --Witnessed seizure; No new episodes of seizures since admission Abnormal findings on CT head and MRI brain Follow neurology evaluation recommendations Continue seizure precautions, Neurochecks Ativan as needed for seizures Continue Keppra 1000mg bid Do not drive until cleared by neurologist Check EEG --Abnormal CT head/abnormal MRI brain with and without CT head without contrast: Decreased attenuation seen in the anteromedial ganglia capsular region on the left adjacent to the frontal horn of the left lateral ventricle Check with MRI check with MRI MRI brain; [without and with] small nonaggressive appearing bubbly type lesion seen along the septum pellucidum anteriorly Differential include sub-ependymoma , central neurocytoma or DNET- No acute hemorrhage, mass-effect, midline shift, hydrocephalus or acute large territorial infarct No chronic infarct or atrophy, no significant white matter abnormality CTA head:1.4 similar focus of decreased attenuation inferior to the lateral ventricles as detailed above with apparent slight mass-effect upon the anterior cerebral arteries there is no CT evidence of vascular component or significant narrowing of the intracranial vessels Check EEG Follow neurology evaluation Recheck CTA neck, Carotid Doppler and echocardiogram if indicated Physical therapy/occupational therapy and rehab --Ongoing tobacco use; smoking cessation counseling done Nicotine patch as needed --History of marijuana use; Counseling done, advised to quit recreational drug use -DVT prophylaxis-Lovenox Closely monitor patient and adjust the management as needed Follow service delivery management consultant recommendations Plan of care discussed with the patient and his nurse Disposition: DC-01 TO HOME OR SELFCARE Final Discharge Diagnosis (Prints w/discharge instructions): Seizures. Abnormal CT/MRI brain. Ongoing tobacco use. History of marijuana use Time spent for discharge: 35 min Core Measure Documentation - Palliative Care Palliative Care/ Comfort Measures: Not Applicable - Core Measures Any of the following diagnoses?: none Exam - Constitutional Vitals: Temp Pulse Resp BP Pulse Ox 98.1 F 64 18 110/58 97 06/29/20 08:02 06/29/20 10:53 06/29/20 08:02 06/29/20 08:02 06/29/20 08:02 General appearance: Present: no acute distress, well-nourished - EENT Eyes: Present: PERRL, EOM intact - Neck Neck: Present: supple, normal ROM - Respiratory Respiratory effort: normal Respiratory: bilateral: diminished, negative: rales, rhonchi, wheezing - Cardiovascular Rhythm: regular Heart Sounds: Present: S1 & S2 - Extremities Extremities: no ischemia, No edema - Abdominal General gastrointestinal: Present: soft, non-tender, non-distended, normal bowel sounds - Integumentary Integumentary: Present: clear, warm - Musculoskeletal Musculoskeletal: strength equal bilaterally, generalized weakness - Psychiatric Psychiatric: appropriate mood/affect, cooperative - Neurologic Neurologic: CNII-XII intact, moves all extremities Plan Activity: advance as tolerated, no driving until cleared by PCP (Do not drive for 6 months/until cleared by PCP/neuro) Diet: regular Special Instructions: smoking cessation Additional Instructions: If you have worsening symptoms contact MD or go to emergency room. Advised to follow-up with primary care physician, private neurologist per schedule,. Advised smoking cessation, nicotine patch as needed. Advised to quit recreational drug marijuana use. Do not drive until 6months or cleared by PMD/neurologist. Advised to follow private neurologist in 2-4 wks Follow up with: RAJ NOLASCO MD [Staff Physician] - 3-5 Days DIANE GAXIOLA MD [Staff Physician] - 14 Days Forms: Discharge Signature Page, Work/School Release Form Prescriptions: Nicotine [Habitrol] 14 mg TD QDAY #30 patch levETIRAcetam [Keppra TAB] 500 mg PO BID #60 tablet
== END 2020-06-29 15:55 | disposition home or self-care (01) ==
LOC: ED 06:47 → 4A 09:55
PROVIDERS: ADMIT Internal Medicine; ATTEND Internal Medicine
DX: R56.9 Unspecified convulsions (principal); R93.0 Abnormal findings on diagnostic imaging of skull and head, not elsewhere classified; F17.210 Nicotine dependence, cigarettes, uncomplicated; F12.10 Cannabis abuse, uncomplicated; M62.81 Muscle weakness (generalized); Z79.899 Other long term (current) drug therapy; Z98.890 Other specified postprocedural states
CPT/HCPCS: 36415; 70450; 70496; 70553; 80048; 80053; 80061; 80307; 82550; 82962; 83735; 84100; 84443; 85014; 85018; 85049; 93005; 96361; 96365; 96372; 96375; 97161; 99285; A9575; G0378; J1200; J1644; J1953; J2765; J7030; Q9967; 80320; G0480